=== PATIENT | female | born 1990 | race Caucasian/White ===

== ENCOUNTER 2018-11-10 17:48 | Outpatient (CLI) | payer BC | END 2018-11-10 19:59 | disposition home or self-care (01) | LOC: OBT 17:48 → L-D 17:50 → OBT 19:59 | DX: O62.9 Abnormality of forces of labor, unspecified (principal); Z3A.35 35 weeks gestation of pregnancy | CPT/HCPCS: 76818 ==

== ENCOUNTER 2018-12-14 12:26 | Inpatient (IN) | payer BC ==
[2018-12-14] MEDS ORDERED: METHYLERGONOVINE 0.2 MG INJ IM (17:00)
[2018-12-14] MEDS ORDERED: LIDOCAINE 1% (MPF) 30 ML INJ INJ (17:00)
[2018-12-14] MEDS ORDERED: IBUPROFEN 600 MG TAB PO (17:00)
[2018-12-14] MEDS ORDERED: MISOPROSTOL 200 MCG TAB PR (17:00)
[2018-12-14] MEDS ORDERED: BUTORPHANOL 2 MG INJ IV ×2 (17:00)
[2018-12-14] MEDS ORDERED: CARBOPROST 250 MCG INJ IM (17:00)
[2018-12-14] MEDS ORDERED: OXYTOCIN 30 UNITS/LR 500 ML IV (17:00)
[2018-12-14 17:12] LABS: ADD MAN DIFF? NO
[2018-12-14] MEDS: LACTATED RINGER'S 1,000 ML IV ×3 (17:17→19:38)
[2018-12-14] MEDS: AMPICILLIN 2 GM/NS (PMX) 100 ML IV (17:18)
[2018-12-14 17:19] LABS: WHITE BLOOD COUNT 13.8 10^3/ul (4.8-10.8)
[2018-12-14 17:19] LABS: BASOPHIL # 0.1 10^3/ul (0.0-0.1); BASOPHILS % 0.4 % (0.0-2.0); EOSINOPHILS % 0.3 % (0.0-7.0); HEMATOCRIT 35.2 % (37.0-47.0); HEMOGLOBIN 11.7 g/dl (12.0-16.0); LYMPHOCYTES # 2.4 10^3/ul (0.8-2.9); LYMPHOCYTES % 17.3 % (15.0-51.0); MEAN CORPUSCULAR HEMOGLOBIN 30.3 pg (29.0-33.0); MEAN CORPUSCULAR HGB CONC 33.2 g/dl (32.0-37.0); MEAN CORPUSCULAR VOLUME 91.2 fl (82.0-101.0); MEAN PLATELET VOLUME 11.2 fl (7.4-10.4); MONOCYTE # 0.8 10^3/ul (0.3-0.9); MONOCYTES % 5.8 % (0.0-11.0); NEUTROPHIL # 10.4 10^3/ul (1.6-7.5); NEUTROPHILS % 75.2 % (39.0-77.0); PLATELET COUNT 229 10^3/UL (140-415); RED BLOOD COUNT 3.86 10^6/ul (4.20-5.40)
[2018-12-14 17:38] LABS: INR 1.13; PROTIME 14.6 Sec (11.9-14.9); PT RATIO 1.1
[2018-12-14 17:39] LABS: PARTIAL THROMBOPLASTIN TIME 27.5 Sec (23.0-35.0)
[2018-12-14] MEDS ORDERED: ONDANSETRON 4 MG INJ IV (20:00)
[2018-12-14] MEDS ORDERED: NALOXONE (0.4 MG/ML) INJ IV (20:00)
[2018-12-14] MEDS ORDERED: DIPHENHYDRAMINE 50 MG INJ IV (20:00)
[2018-12-14] MEDS: FENTAnyl 2MCG/ML-ROPIV 0.2% 100 ML BAG EPI (21:10)
[2018-12-14] MEDS: AMPICILLIN 1 GM/NS (PMX) 50 ML IV (21:16)
[2018-12-14 22:49] LABS: HEPATITIS B SURFACE ANTIGEN NEGATIVE (NEGATIVE)
[2018-12-15] MEDS: LACTATED RINGER'S 1,000 ML IV (00:27)
[2018-12-15] MEDS: OXYTOCIN 30 UNITS/LR 500 ML IV ×2 (01:11→01:40)
[2018-12-15] MEDS ORDERED: MISOPROSTOL 200 MCG TAB PR (04:30)
[2018-12-15] MEDS ORDERED: DIBUCAINE 1% 30 GM OINT TOP (04:30)
[2018-12-15] MEDS ORDERED: OXYTOCIN 30 UNITS/LR 500 ML IV (04:30)
[2018-12-15] MEDS ORDERED: CARBOPROST 250 MCG INJ IM (04:30)
[2018-12-15] MEDS ORDERED: HYDROCODONE/APAP (5/325) TAB PO (04:30)
[2018-12-15] MEDS ORDERED: METHYLERGONOVINE 0.2 MG INJ IM (04:30)
[2018-12-15] MEDS: IBUPROFEN 600 MG TAB PO ×3 (05:57→18:07)
[2018-12-15] MEDS: BENZOCAINE 20% 56 ML SPRAY TOP (05:58)
[2018-12-15] MEDS: WITCH HAZEL/GLYCERIN PAD PR (05:58)
[2018-12-15] MEDS: LACTATED RINGER'S 1,000 ML IV* ×2 (06:03→12:06)
[2018-12-15] MEDS: SENNA/DOCUSATE NA (8.6MG/50MG) TAB PO ×2 (09:39→21:00)
[2018-12-15 15:06] LABS: RAPID PLASMA REAGIN NONREACTIVE (NR)
[2018-12-15] MEDS: ACETAMINOPHEN 325 MG TAB PO (16:14)
[2018-12-16] MEDS: IBUPROFEN 600 MG TAB PO ×4 (00:02→17:29)
[2018-12-16] MEDS: LACTATED RINGER'S 1,000 ML IV* (00:43)
[2018-12-16 08:09] LABS: ADD MAN DIFF? NO
[2018-12-16 08:19] LABS: BASOPHIL # 0.1 10^3/ul (0.0-0.1); BASOPHILS % 0.4 % (0.0-2.0); EOSINOPHILS # 0.1 10^3/ul (0.0-0.5); HEMATOCRIT 32.2 % (37.0-47.0); HEMOGLOBIN 10.6 g/dl (12.0-16.0); LYMPHOCYTES # 3.2 10^3/ul (0.8-2.9); LYMPHOCYTES % 28.7 % (15.0-51.0); MEAN CORPUSCULAR HEMOGLOBIN 30.5 pg (29.0-33.0); MEAN CORPUSCULAR HGB CONC 32.9 g/dl (32.0-37.0); MEAN CORPUSCULAR VOLUME 92.8 fl (82.0-101.0); MEAN PLATELET VOLUME 11.2 fl (7.4-10.4); MONOCYTE # 0.6 10^3/ul (0.3-0.9); MONOCYTES % 5.7 % (0.0-11.0); NEUTROPHIL # 7.1 10^3/ul (1.6-7.5); PLATELET COUNT 209 10^3/UL (140-415); RED BLOOD COUNT 3.47 10^6/ul (4.20-5.40); RED CELL DISTRIBUTION WIDTH 13.1 % (11.5-14.5)
[2018-12-16 08:19] LABS: WHITE BLOOD COUNT 11.3 10^3/ul (4.8-10.8)
[2018-12-16] MEDS: SENNA/DOCUSATE NA (8.6MG/50MG) TAB PO (09:59)
[2018-12-17] MEDS: IBUPROFEN 600 MG TAB PO ×3 (00:01→12:26)
[2018-12-17] MEDS: DIPHTH/TET/ACEL PERTUSS (ADULT) 0.5 ML VIAL IM* (09:00)
[2018-12-17] MEDS: SENNA/DOCUSATE NA (8.6MG/50MG) TAB PO ×2 (10:07)
[2018-12-17] MEDS: WITCH HAZEL/GLYCERIN PAD PR (13:22)
== END 2018-12-17 15:11 | disposition home or self-care (01) | DRG 807 ==
LOC: OBT 12:26 → PP1 12-15 03:16 → L-D 12:27 → OBT 16:00 → L-D 16:00
PROVIDERS: Specialist
PROC: 10E0XZZ Delivery of Products of Conception, External Approach (ICD-10-PCS; principal; 2018-12-15)
PROC: 0UQGXZZ Repair Vagina, External Approach (ICD-10-PCS; 2018-12-15)
DX: O71.4 Obstetric high vaginal laceration alone (principal); O48.0 Post-term pregnancy; Z3A.40 40 weeks gestation of pregnancy; Z37.0 Single live birth
CPT/HCPCS: 62322; 85025; 85610; 85730; 86592; 86850; 86900; 86901; 87340; 99464